=== PATIENT | female | born 1950 | race Caucasian/White ===

== ENCOUNTER → 2018-09-17 | Outpatient (CLI) | payer MEDICARE, OTHER ==
--- NOTE | 2018-09-17 13:04 | Diagnostic Imaging Report ---
INDICATION: Foot pain. EXAMINATION: Three views of the left foot were obtained. FINDINGS: The bones are osteopenic. There is mild metatarsus primus varus with hallux valgus. There is no fracture or dislocation. Soft tissues are unremarkable. 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 Dictated by: Dictated on workstation # [id number]
== END ==
LOC: RAD FS 12:23
PROVIDERS: ATTEND Family Medicine
DX: M85.872 Other specified disorders of bone density and structure, left ankle and foot (principal); M19.072 Primary osteoarthritis, left ankle and foot; M20.12 Hallux valgus (acquired), left foot
CPT/HCPCS: 73630

== ENCOUNTER → 2021-03-12 | Outpatient (CLI) | payer MEDICARE, OTHER | LOC: CARD 14:30 | PROVIDERS: ATTEND Family Medicine | DX: I51.7 Cardiomegaly (principal); R55 Syncope and collapse | CPT/HCPCS: 93306 ==

== ENCOUNTER → 2021-03-18 | Outpatient (CLI) | payer MEDICARE, OTHER ==
--- NOTE | 2021-03-18 10:24 | Diagnostic Imaging Report ---
INDICATION: Right 3rd finger pain. TIME OF EXAM: 9:41 AM 3 views of the right 3rd finger were obtained. Alignment is normal. Phalanges appear to be intact. No fractures are seen. Soft tissues are unremarkable. IMPRESSION: No acute bony abnormality is detected. Dictated by: Dictated on workstation # [id number]
== END ==
LOC: RAD FS 09:29
PROVIDERS: ATTEND Nurse Practitioner
DX: M79.644 Pain in right finger(s) (principal)
CPT/HCPCS: 73140

== ENCOUNTER 2023-03-23 09:58 | Emergency (ER) | payer MEDICARE, OTHER ==
[~2023-03-23] VITALS: Ht 172.7 cm; Wt 86.2 kg
--- NOTE | 2023-03-23 10:10 | ED Head Injury ---
General Chief Complaint: Head/Cervical Problems Stated Complaint: FALL History of Present Illness Date Seen by Provider: Mar 23, 2023 Time Seen by Provider: 10:00 Initial Comments 72 yr F with PMH of CAD with stents placed last year/ HTN/ DM2, is brought in by EMS with c/o fall on to tiled surface. Pt has a head lac which is bandaged by EMS. Patient is unsure if she had LOC or not. She denies feeling dizzy prior to the fall. Denies chest pain, fever, cough, abdominal pain, nausea and vomi ting. Allergies and Home Medications Allergies Coded Allergies: bupropion (Verified Allergy, Unknown, 03/23/23) Patient Home Medication List Home Medication List Reviewed: Yes Review of Systems Review of Systems Constitutional: no symptoms reported Eyes: No Symptoms Reported Ears, Nose, Mouth, Throat: no symptoms reported Respiratory: no symptoms reported Cardiovascular: no symptoms reported Gastrointestinal: no symptoms reported Genitourinary: no symptoms reported Musculoskeletal: no symptoms reported Skin: no symptoms reported Psychiatric/Neurological: Other (Fall /head strike) Endocrine: No Symptoms Reported Hematologic/Lymphatic: No Symptoms Reported Physical Exam Vital Signs Vital Signs - First Documented 03/23/23 09:58 Temp 36.4 Pulse 80 Resp 18 B/P (MAP) 124/36 (65) O2 Delivery Room Air Capillary Refill : Height, Weight, BMI Height: '" Weight: lbs. oz. kg; BMI Method: General Appearance: WD/WN, no apparent distress HEENT: PERRL/EOMI, normal ENT inspection, other (4 cm right parietal scalp lac eration with bleeding. Superficial laceration of dermal layers.) Neck: non-tender, full range of motion, supple, normal inspection Cardiovascular: regular rate, rhythm Respiratory: lungs clear, normal breath sounds, no respiratory distress Gastrointestinal: non tender, soft Back: normal inspection, no vertebral tenderness Extremities: normal range of motion, non-tender, normal inspection Psychiatric: alert [place] Nerves: normal hearing, normal speech, PERRL Ángel Coma Score Best Eye Response: (4) Open Spontaneously Best Verbal Response: (5) Oriented Best Motor Response: (6) Obeys Commands [place] Total: 15 Progress/Results/Core Measures Results/Orders My Orders Orders - ANJANA LEE MD Ct Head/Cervical Spine Wo (03/23/23 10:04) Accucheck Stat ONCE (03/23/23 10:55) Vital Signs/I&O 03/23/23 09:58 Temp 36.4 Pulse 80 Resp 18 B/P (MAP) 124/36 (65) O2 Delivery Room Air Progress Progress Note : Progress Note 1. FALL/ HEAD INJURY: RIGHT PARIETAL SCALP LACERATION - CT HEAD & C-SPINE: no acute findings - Tdap given in ER - NS IVF bolus started by EMS and completed in ER - Fingerstick in ER is 171 - Wound irrigated copiously with NS - Six bekah placed, Dressing - Wound care instructions - Advised ice application - Advised Ibuprofen or Tylenol for pain - Concussion precautions given - Follow up with PCP as needed - Return to ER for staple removal in 7 to 10 days -The patient was seen in the ED, and treated appropriately to presentation at a specific point in time. Patient is informed that there is a possibility that disease and illness can evolve and change in acuity rapidly or slowly after patient is discharged from the ER. Precautionary advice given to the patient for immediate return to ER if symptoms worsen or do not resolve, and to seek emergency care sooner rather than later. Pt also advised on the importance of PCP follow up and compliance with management and follow up plan with PCP and/or specialist, as this is part of the management plan. Pt verbally expressed understanding. Diagnostic Imaging Diagonstic Imaging: CT Plain Films/CT/US/NM/MRI: c-spine, head Comments [facility], [place] NAME: SARAH JEAN [facility] REC#: [id number] PT STATUS: REG ER : 1950 PHYSICIAN: ANJANA LEE MD ADMIT DATE: 03/23/23/ER FS Draft Date of Exam:03/23/23 CT HEAD/CERVICAL SPINE WO Clinical indications: Patient fell hitting right side of head laceration to the right side of head. Exam: Head CT without IV contrast with sagittal and coronal reformations. Axial CT scan of the cervical spine with sagittal and coronal reformations. Auto Exposure Controls were utilized during the CT exam to meet ALARA standards for radiation dose reduction. Comparison: None. Findings: Head CT: There is no evidence of acute cerebral infarct, intracranial hemorrhage, or gross mass effect. The brain parenchymal volume appears appropriate for patient's age. There is normal aparicio-white matter distinction. There is no significant midline shift or herniation. There is no evidence of hydrocephalus. The basal cisterns are unremarkable. There is soft tissue swelling and laceration involving the right side of the head. There is no skull fracture. The skull, extracranial soft tissue, and orbits are unremarkable. The paranasal sinuses are unremarkable. Temporal bones show no significant abnormality. Cervical spine: There is no acute cervical spine fracture or dislocation. There are hypertrophic spurs involving the mid to lower cervical spine. There is moderate loss of disk space height involving the C5-C6 and C6-C7 levels. There is facet arthropathy. There is soft tissue swelling involving the posterior aspect of the lower neck region. There is heterotopic ossification seen posterior to the T1 vertebra which may be from chronic degenerative or traumatic changes. Impression: 1: There is no evidence of intracranial hemorrhage. There is no skull fracture. 2: There is cervical spine degenerative disease with no acute fracture or dislocation. Dictated on workstation # [id number] Dict: 03/23/23 1053 Trans: 03/23/[address] [facility] [id number] Interpreted by: TAMMY DE SANTIAGO MD Electronically signed by: Departure Impression Primary Impression: Fall Qualified Codes: W19.XXXA - Unspecified fall, initial encounter Additional Impression: Laceration of scalp Qualified Codes: S01.01XA - Laceration without foreign body of scalp, initial encounter Disposition: 01 HOME, SELF-CARE Condition: Improved Departure-Patient Inst. Referrals: ABEBA RODRIGUEZ MD (PCP) Primary Care Physician Patient Instructions: Concussion in adults, Laceration Repair With Bekah ED, Wound Care ED Add. Discharge Instructions: - Six bekah placed - Wound care instructions - Advised ice application - Advised Ibuprofen or Tylenol for pain - Concussion precautions given - Follow up with PCP as needed - Return to ER for staple removal in 7 to 10 days - Tetanus shot given on 03/23/23 in ER All discharge instructions reviewed with patient and/or family. Voiced understanding. ANJANA LEE MD Mar 23, 2023 10:10
--- NOTE | 2023-03-23 11:09 | Diagnostic Imaging Report ---
Clinical indications: Patient fell hitting right side of head laceration to the right side of head. Exam: Head CT without IV contrast with sagittal and coronal reformations. Axial CT scan of the cervical spine with sagittal and coronal reformations. Auto Exposure Controls were utilized during the CT exam to meet ALARA standards for radiation dose reduction. Comparison: None. Findings: Head CT: There is no evidence of acute cerebral infarct, intracranial hemorrhage, or gross mass effect. The brain parenchymal volume appears appropriate for patient's age. There is normal aparicio-white matter distinction. There is no significant midline shift or herniation. There is no evidence of hydrocephalus. The basal cisterns are unremarkable. There is soft tissue swelling and laceration involving the right side of the head. There is no skull fracture. The skull, extracranial soft tissue, and orbits are unremarkable. The paranasal sinuses are unremarkable. Temporal bones show no significant abnormality. Cervical spine: There is no acute cervical spine fracture or dislocation. There are hypertrophic spurs involving the mid to lower cervical spine. There is moderate loss of disk space height involving the C5-C6 and C6-C7 levels. There is facet arthropathy. There is soft tissue swelling involving the posterior aspect of the lower neck region. There is heterotopic ossification seen posterior to the T1 vertebra which may be from chronic degenerative or traumatic changes. Impression: 1: There is no evidence of intracranial hemorrhage. There is no skull fracture. 2: There is cervical spine degenerative disease with no acute fracture or dislocation. Dictated by: Dictated on workstation # [id number]
[2023-03-23] MEDS ORDERED: Tetanus/Diphtheria/Pertussis (Acell) ADULT Vaccine 0.5 ML IM ONE (12:00)
[2023-03-23 12:23] VITALS: BP 122/74
== END 2023-03-23 12:23 | disposition home or self-care (01) ==
LOC: EDUNIT# 09:58 → ER FS 10:00
DX: S01.01XA Laceration without foreign body of scalp, initial encounter (principal); Z23 Encounter for immunization; W18.30XA Fall on same level, unspecified, initial encounter
CPT/HCPCS: 70450; 72125; 82947; 90715